=== PATIENT | female | born 1965 | race African-American/Black ===

== ENCOUNTER 2016-06-19 18:26 | Observation (INO) | payer MEDICARE, MEDICAID ==
[~2016-06-19] VITALS: Ht 172.7 cm; Wt 95.7 kg
[~2016-06-19 18:26] MED LIST: ALPR1TAB2 PO; ARIP10TA13 PO; BENZ100C4 PO; CARI350T14 PO; DIAZ10TA4 PO; DIAZ5TAB PO; FLUO10CA13 PO; GUAI200T3 PO; HYDR20TA19 PO; HYDR30TA PO; LEVO750T26 PO; LORA-446 PO; METH500T97 PO; OXYC-302 PO; OXYC1TAB7 PO; OXYC1TAB9 PO; ZOLP10TA PO; Zolpidem Tartrate PO
[2016-06-19 19:56] LABS: ASPARTATE AMINO TRANSFERASE 26 U/L (15-37); BLOOD UREA NITROGEN 13 mg/dL (7-18)
[2016-06-19 20:00] LABS: ACETAMINOPHEN < 2 mcg/mL (10-30)
[2016-06-19 20:42] LABS: DIFF TOTAL CELLS COUNTED 100 CELL DIFF; HEMOGLOBIN 12.8 g/dL (11.7-16.4)
[2016-06-19 20:45] LABS: VERIFY COUNTS? YES
[2016-06-19 21:54] LABS: DAU SCREEN DISCLAIMER
[2016-06-19 22:04] LABS: PATH.CAST-FLAG NOT PRESENT; SPERM-FLAG NOT PRESENT; SRC-FLAG NOT PRESENT; XTAL-FLAG NOT PRESENT; YLC-FLAG NOT PRESENT
[2016-06-20] MEDS ORDERED: ACETAMINOPHEN 325 MG TABLET PO PRN (00:30)
[2016-06-20] MEDS ORDERED: DOCUSATE 100 MG CAPSULE PO PRN (00:30)
[2016-06-20] MEDS ORDERED: POLYETHYLENE GLYCOL 17 GM PACKET PO PRN (00:30)
[2016-06-20] MEDS ORDERED: BISACODYL 10 MG SUPP PR PRN (00:30)
[2016-06-20] MEDS ORDERED: ONDANSETRON ODT 4 MG ONE (07:08)
[2016-06-20 07:39] VITALS: BP 102/74
[2016-06-20] MEDS ORDERED: ALPRazolam 1MG TABLET ONE (09:16)
[2016-06-20] MEDS: ALPRazolam 1MG TABLET PO ONE (09:17)
== END 2016-06-20 10:55 ==
LOC: ED 20:23 → EDIP 22:58 → 3E 06-20 03:24
PROVIDERS: ADMIT Internal Medicine; ATTEND Internal Medicine
DX: T42.4X2A Poisoning by benzodiazepines, intentional self-harm, initial encounter (principal); T51.92XA Toxic effect of unspecified alcohol, intentional self-harm, initial encounter; F10.229 Alcohol dependence with intoxication, unspecified; F41.9 Anxiety disorder, unspecified; F32.9 Major depressive disorder, single episode, unspecified; F11.20 Opioid dependence, uncomplicated; R82.79 Other abnormal findings on microbiological examination of urine; G89.29 Other chronic pain; M54.9 Dorsalgia, unspecified; Y92.89 Other specified places as the place of occurrence of the external cause
CPT/HCPCS: 36415; 80053; 80307; 80329; 81001; 85025; 87077; 87086; 87186; 93005; 99285; G0378; 96374; Q0162; G0480

== ENCOUNTER 2016-09-01 02:52 | Emergency (ER) | payer MEDICARE, MEDICAID ==
[~2016-09-01] VITALS: Ht 167.6 cm; Wt 100.0 kg
[2016-09-01] MEDS ORDERED: LORazepam 1MG TABLET ONE (03:26)
[2016-09-01] MEDS ORDERED: HYDROcodone/APAP 5/325 TABLET ONE (03:26)
[2016-09-01] MEDS ORDERED: LORazepam 1MG TABLET PO ONE (03:30)
[2016-09-01] MEDS ORDERED: HYDROcodone/APAP 5/325 TABLET PO ONE (03:30)
[2016-09-01 04:20] VITALS: BP 145/95
== END 2016-09-01 04:44 | disposition home or self-care (01) ==
LOC: ED 03:58
DX: S39.012A Strain of muscle, fascia and tendon of lower back, initial encounter (principal); Z88.0 Allergy status to penicillin; Z88.8 Allergy status to other drugs, medicaments and biological substances; Z88.6 Allergy status to analgesic agent; X58.XXXA Exposure to other specified factors, initial encounter; Y93.89 Activity, other specified; Y99.8 Other external cause status; Y92.89 Other specified places as the place of occurrence of the external cause
CPT/HCPCS: 99283

== ENCOUNTER 2019-02-09 09:24 | Emergency (ER) | payer MEDICAID, MEDICARE ==
[~2019-02-09] VITALS: Ht 167.6 cm; Wt 102.6 kg
[~2019-02-09 09:24] MED LIST changes: -ARIP10TA13 PO; +ARIP10TA33 PO; +BENZ-17 PO; -BENZ100C4 PO; -GUAI200T3 PO; +GUAI200T37 PO; +OXYC-432 PO; -OXYC1TAB9 PO
[2019-02-09 09:28] VITALS: BP 128/87
[2019-02-09] MEDS ORDERED: HYDROcodone/APAP 5/325 TABLET ONE (09:52)
[2019-02-09] MEDS ORDERED: HYDROcodone/APAP 5/325 TABLET PO ONE (10:00)
== END 2019-02-09 10:48 | disposition home or self-care (01) ==
LOC: ED 10:40
DX: L03.115 Cellulitis of right lower limb (principal)
CPT/HCPCS: 99283

== ENCOUNTER 2019-02-28 16:19 | Observation (INO) | payer MEDICARE, MEDICAID ==
[~2019-02-28] VITALS: Ht 167.6 cm; Wt 103.1 kg
--- NOTE | 2019-02-28 16:32 | NUR ---
Gray patients brother in law. Phone number [phone]
[2019-02-28] MEDS ORDERED: PROMETHAZINE 25 MG/ML, 1ML IM ONE (17:00)
[2019-02-28] MEDS ORDERED: SODIUM CHLORIDE FLUSH 10ML SYR IVF ONE (17:00)
[2019-02-28] MEDS ORDERED: ACETAMINOPHEN 500 MG TABLET PO ONE (17:00)
[2019-02-28] MEDS ORDERED: SODIUM CHLORIDE 0.9% 1,000ML IVBOLUS ONE ×2 (17:00→18:30)
--- NOTE | 2019-02-28 17:25 | NUR ---
AFTER AMBULATING TO BATHROOM AND PROVIDING URINE SAMPLE, MEDICATED NOTED ON MAR WITH IV FLUIDS INFUSING
[2019-02-28 17:26] LABS: MD YES; MEAN CORPUSCULAR HEMOGLOBIN 28.8 pg (27.0-34.8); MEAN CORPUSCULAR HGB CONC 33.5 g/dL (32.4-35.8); MEAN CORPUSCULAR VOLUME 85.9 fL (80-100); MEAN PLATELET VOLUME 7.7 fL (7.4-10.4); PLATELET COUNT 268 x10^3/uL (130-400); RED BLOOD COUNT 4.72 x10^6/uL (3.82-5.3); RED CELL DISTRIBUTION WIDTH 16.9 % (9.6-15.2)
[2019-02-28] MEDS ORDERED: PROMETHAZINE 25 MG/ML, 1ML ONE (17:27)
[2019-02-28 17:30] LABS: ALBUMIN 3.4 g/dL (3.4-5.0); ANION GAP 22 mmol/L (5-15); CALCIUM 8.1 mg/dL (8.5-10.1); CHLORIDE 97 mmol/L (98-107); CREATININE 0.79 mg/dL (0.55-1.02)
[2019-02-28 17:32] LABS: ALKALINE PHOSPHATASE 116 U/L (45-117); BILIRUBIN,TOTAL 0.4 mg/dL (0.2-1.0); TOTAL PROTEIN 7.9 g/dL (6.4-8.2)
[2019-02-28 17:46] LABS: ALANINE AMINOTRANSFERASE 66 U/L (12-78)
[2019-02-28 17:59] LABS: CULTURE INDICATED? YES; MICROSCOPIC INDICATED
[2019-02-28 18:06] LABS: <PLATELET ESTIMATE> ADEQUATE; <PLT MORPHOLOGY> NORMAL PLT MORPH; <RBC MORPHOLOGY> NORMAL; BASOS#(MANUAL) 0.09 x10^3/uL (0-0.1); BASOS% (MANUAL) 1 % (0-1); LYMPH#(MANUAL) 2.96 x10^3/uL (1-3.4); LYMPHS% (MANUAL) 34 % (22-44); MONOS#(MANUAL) 0.26 x10^3/uL (0.3-2.7); MONOS% (MANUAL) 3 % (2-9); SEG#(MANUAL) 5.39 x10^3/uL (1.8-6.8); SEGS% (MANUAL) 62 % (42-75)
[2019-02-28] MEDS ORDERED: ACETAMINOPHEN 500 MG TABLET ONE (18:23)
[2019-02-28] MEDS ORDERED: CEFTRIAXONE PMX 1GM/50ML 50 ML IV ONE (18:30)
[2019-02-28] MEDS ORDERED: LEVOFLOXACIN/PMX 500MG/100ML 100 ML IV SCH (18:30)
[2019-02-28] MEDS ORDERED: LEVOFLOXACIN/PMX 500MG/100ML 100 ML ONE (18:37)
--- NOTE | 2019-02-28 18:47 | NUR ---
PT AWARE OF INTENTION TO ADMIT. ADDITIONAL IV BOLUS INFUSING WITH ANTIBIOTICS STARTED NOTED ON MAR
[2019-02-28] MEDS ORDERED: morphine SULFATE 10 MG/ML, 1ML IVPush ONE (19:30)
[2019-02-28] MEDS ORDERED: MORPHINE SULFATE 4 MG/ML, 1ML ONE (19:35)
[2019-02-28] MEDS ORDERED: FOLIC ACID 5 MG/ML IM ONE (20:30)
[2019-02-28] MEDS ORDERED: LORazepam 1MG TABLET PO PRN (20:30)
[2019-02-28] MEDS ORDERED: morphine SULFATE 10 MG/ML, 1ML IVPush PRN (20:30)
[2019-02-28] MEDS ORDERED: LABETALOL 5MG/ML, 20ML IVPush PRN (20:30)
[2019-02-28] MEDS ORDERED: hydrALAzine 20 MG/ML, 1ML IVPush PRN (20:30)
[2019-02-28 20:35] VITALS: BP 113/71
[2019-02-28] MEDS ORDERED: THIAMINE 200 MG in SODIUM CHLORIDE 0.9% 50 ML IV ONE (21:00)
[2019-02-28 21:14] LABS: AMPHETAMINE SCREEN, URINE Negative (Negative); BARBITURATE SCREEN, URINE Negative (Negative); BENZODIAZEPINE SCREEN, URINE Negative (Negative); CANNABINOID SCREEN, URINE Negative (Negative); COCAINE SCREEN, URINE Negative (Negative); METHADONE SCREEN, URINE Negative (Negative); OPIATE SCREEN, URINE Negative (Negative)
[2019-02-28] MEDS: SODIUM CHLORIDE 0.9% 1,000 ML IV SCH (22:18)
[2019-02-28] MEDS: FOLIC ACID 1 MG TABLET PO SCH (22:18)
[2019-02-28] MEDS: ENOXAPARIN 40 MG/0.4 ML SQ SCH (22:19)
[2019-02-28 22:35] LABS: ANION GAP 16 mmol/L (5-15); CALCIUM 7.6 mg/dL (8.5-10.1); CHLORIDE 103 mmol/L (98-107); CREATININE 0.74 mg/dL (0.55-1.02)
[2019-02-28] MEDS ORDERED: ZOLP10TA PO (22:44)
[2019-02-28] MEDS ORDERED: CARB200T PO (22:44)
[2019-02-28] MEDS ORDERED: ALPR1TAB2 PO (22:44)
[2019-02-28] MEDS ORDERED: SERT100T PO (22:44)
[2019-02-28] MEDS: ACETAMINOPHEN 325 MG TABLET PO PRN (23:20)
[2019-02-28] MEDS: ZOLPIDEM 10MG TABLET PO PRN (23:20)
[2019-03-01 01:33] VITALS: BP 117/77
[2019-03-01 02:49] LABS: CLOSTRIDIUM DIFFICILE ANTIGEN NEGATIVE; CLOSTRIDIUM DIFFICILE TOXIN NEGATIVE (Negative)
[2019-03-01] MEDS: ACETAMINOPHEN 325 MG TABLET PO PRN ×2 (04:54→16:42)
[2019-03-01 05:26] LABS: MEAN CORPUSCULAR HEMOGLOBIN 29.6 pg (27.0-34.8); MEAN CORPUSCULAR HGB CONC 34.2 g/dL (32.4-35.8); MEAN CORPUSCULAR VOLUME 86.7 fL (80-100); MEAN PLATELET VOLUME 7.9 fL (7.4-10.4); PLATELET COUNT 230 x10^3/uL (130-400); RED CELL DISTRIBUTION WIDTH 17.2 % (9.6-15.2)
[2019-03-01 05:27] LABS: ANION GAP 14 mmol/L (5-15); CALCIUM 7.5 mg/dL (8.5-10.1); CHLORIDE 105 mmol/L (98-107)
[2019-03-01 05:32] LABS: ALKALINE PHOSPHATASE 101 U/L (45-117); BILIRUBIN,TOTAL 0.7 mg/dL (0.2-1.0); TOTAL PROTEIN 6.9 g/dL (6.4-8.2)
[2019-03-01] MEDS: SODIUM CHLORIDE 0.9% 1,000 ML IV SCH ×3 (06:07→23:50)
[2019-03-01 06:12] LABS: MD YES
[2019-03-01 06:13] LABS: <PLATELET ESTIMATE> ADEQUATE; <PLT MORPHOLOGY> NORMAL PLT MORPH; <RBC MORPHOLOGY> NORMAL; EOS#(MANUAL) 0.08 x10^3/uL (0.0-0.4); EOS% (MANUAL) 1 % (1-7); LYMPH#(MANUAL) 2.94 x10^3/uL (1-3.4); LYMPHS% (MANUAL) 35 % (22-44); MONOS#(MANUAL) 0.08 x10^3/uL (0.3-2.7); MONOS% (MANUAL) 1 % (2-9); SEG#(MANUAL) 5.29 x10^3/uL (1.8-6.8); SEGS% (MANUAL) 63 % (42-75)
[2019-03-01 06:19] LABS: ALANINE AMINOTRANSFERASE 42 U/L (12-78)
[2019-03-01 06:49] VITALS: BP 130/83
[2019-03-01] MEDS: SERTRALINE 100MG TABLET PO SCH (08:57)
[2019-03-01] MEDS: MULTIVITAMINS/MINERALS TABLET PO SCH (08:57)
[2019-03-01] MEDS: SENNA/DOCUSATE TABLET PO SCH (08:57)
[2019-03-01] MEDS: ALPRazolam 1MG TAB PO PRN ×2 (08:57→20:33)
[2019-03-01] MEDS: CARBAMAZEPINE 200 MG TABLET PO SCH ×2 (08:57→20:34)
[2019-03-01] MEDS: ONDANSETRON 2MG/ML, 2ML IVPush PRN (08:58)
[2019-03-01] MEDS ORDERED: THIAMINE 100 MG in DEXTROSE 5% 50 ML IVPB SCH (09:00)
[2019-03-01] MEDS: FOLIC ACID 1 MG TABLET PO SCH (11:22)
[2019-03-01 12:08] VITALS: BP 129/83
[2019-03-01] MEDS: PROMETHAZINE 25 MG/ML, 1ML IM PRN (14:08)
[2019-03-01] MEDS: THIAMINE 100MG TABLET PO SCH (16:42)
[2019-03-01] MEDS ORDERED: LEVOFLOXACIN/PMX 750MG/150ML 150 ML IV SCH (18:30)
[2019-03-01 20:00] VITALS: BP 121/88
[2019-03-01] MEDS: ENOXAPARIN 40 MG/0.4 ML SQ SCH (20:33)
[2019-03-02 02:27] VITALS: BP 151/86
[2019-03-02 06:02] LABS: ALBUMIN 2.6 g/dL (3.4-5.0); ANION GAP 8 mmol/L (5-15); CALCIUM 7.4 mg/dL (8.5-10.1); CHLORIDE 111 mmol/L (98-107); CREATININE 0.67 mg/dL (0.55-1.02)
[2019-03-02 06:04] LABS: ALKALINE PHOSPHATASE 97 U/L (45-117); BILIRUBIN,TOTAL 0.4 mg/dL (0.2-1.0)
[2019-03-02 06:05] LABS: MEAN CORPUSCULAR HEMOGLOBIN 29.4 pg (27.0-34.8); MEAN CORPUSCULAR HGB CONC 33.6 g/dL (32.4-35.8); MEAN CORPUSCULAR VOLUME 87.4 fL (80-100); MEAN PLATELET VOLUME 7.9 fL (7.4-10.4); PLATELET COUNT 199 x10^3/uL (130-400); RED BLOOD COUNT 4.05 x10^6/uL (3.82-5.3); RED CELL DISTRIBUTION WIDTH 16.4 % (9.6-15.2)
[2019-03-02 06:30] LABS: MD YES
[2019-03-02 06:32] LABS: EOS#(MANUAL) 0.05 x10^3/uL (0.0-0.4); EOS% (MANUAL) 1 % (1-7); LYMPH#(MANUAL) 2.16 x10^3/uL (1-3.4); LYMPHS% (MANUAL) 44 % (22-44); MONOS% (MANUAL) 2 % (2-9); SEGS% (MANUAL) 53 % (42-75)
[2019-03-02 06:33] LABS: <PLATELET ESTIMATE> ADEQUATE; <PLT MORPHOLOGY> NORMAL PLT MORPH; <RBC MORPHOLOGY> NORMAL
[2019-03-02 06:38] LABS: ALANINE AMINOTRANSFERASE 71 U/L (12-78)
[2019-03-02] MEDS: ALPRazolam 1MG TAB PO PRN ×2 (06:46→15:42)
[2019-03-02 07:55] VITALS: BP 125/75
[2019-03-02] MEDS: SODIUM CHLORIDE 0.9% 1,000 ML IV SCH (08:23)
[2019-03-02] MEDS: MULTIVITAMINS/MINERALS TABLET PO SCH (08:23)
[2019-03-02] MEDS: CARBAMAZEPINE 200 MG TABLET PO SCH ×2 (08:24→19:35)
[2019-03-02] MEDS: THIAMINE 100MG TABLET PO SCH (08:24)
[2019-03-02] MEDS: SENNA/DOCUSATE TABLET PO SCH (08:24)
[2019-03-02] MEDS: FOLIC ACID 1 MG TABLET PO SCH (08:24)
[2019-03-02] MEDS: SERTRALINE 100MG TABLET PO SCH (08:24)
[2019-03-02] MEDS ORDERED: POLYETHYLENE GLYCOL 17 GM PACKET PO PRN (09:00)
[2019-03-02] MEDS ORDERED: THIAMINE 100MG TABLET PO SCH (09:00)
[2019-03-02] MEDS: LEVOFLOXACIN 750 MG TABLET PO SCH (09:11)
[2019-03-02] MEDS: ACETAMINOPHEN 325 MG TABLET PO PRN (13:34)
[2019-03-02] MEDS: PROMETHAZINE 25 MG/ML, 1ML IM PRN (13:35)
[2019-03-02 13:41] VITALS: BP 130/80
[2019-03-02 19:34] VITALS: BP 126/84
[2019-03-02] MEDS: ZOLPIDEM 10MG TABLET PO PRN (19:35)
[2019-03-02] MEDS: ENOXAPARIN 40 MG/0.4 ML SQ SCH (19:35)
[2019-03-03 01:24] VITALS: BP 130/85
[2019-03-03] MEDS: ALPRazolam 1MG TAB PO PRN (05:44)
[2019-03-03] MEDS: ACETAMINOPHEN 325 MG TABLET PO PRN (05:44)
[2019-03-03 07:34] VITALS: BP 105/72
[2019-03-03] MEDS ORDERED: ONDA4TAB12 PO (08:47)
[2019-03-03] MEDS ORDERED: LEVO750T26 PO (08:47)
[2019-03-03] MEDS: SERTRALINE 100MG TABLET PO SCH (08:48)
[2019-03-03] MEDS: CARBAMAZEPINE 200 MG TABLET PO SCH (08:48)
[2019-03-03] MEDS: SENNA/DOCUSATE TABLET PO SCH (08:48)
[2019-03-03] MEDS: FOLIC ACID 1 MG TABLET PO SCH (08:48)
[2019-03-03] MEDS: THIAMINE 100MG TABLET PO SCH (08:48)
[2019-03-03] MEDS: MULTIVITAMINS/MINERALS TABLET PO SCH (08:48)
[2019-03-03] MEDS ORDERED: ONDANSETRON 4 MG TABLET ONE (08:51)
[2019-03-03] MEDS: LEVOFLOXACIN 750 MG TABLET PO SCH (08:53)
[2019-03-03] MEDS: ONDANSETRON 2MG/ML, 2ML IVPush PRN (08:54)
[2019-03-03] MEDS ORDERED: FLU VACC QS2019-20 36MOS UP/PF 0.5 ML IM-VACC ONE (11:30)
== END 2019-03-03 12:05 | disposition home or self-care (01) ==
LOC: ED 16:54 → INTOOBSV 19:14 → EDIP 19:14 → 3N 20:26 → DCLOUNGE 03-03 11:52
PROVIDERS: ADMIT Family Medicine; ATTEND Family Medicine
DX: N12 Tubulo-interstitial nephritis, not specified as acute or chronic (principal); F41.1 Generalized anxiety disorder; F10.120 Alcohol abuse with intoxication, uncomplicated; E87.2 Acidosis; E87.1 Hypo-osmolality and hyponatremia; M54.9 Dorsalgia, unspecified; G89.29 Other chronic pain; Z88.0 Allergy status to penicillin
CPT/HCPCS: 36415; 74022; 80048; 80053; 80307; 81001; 83605; 83690; 83735; 84100; 84145; 85025; 87040; 87086; 87324; 96365; 96366; 96367; 96372; 96375; 96376; 99291; G0378; J1650; J1956; J2270; J2405; J2550; J3411; J7030; Q0177